=== PATIENT | male | born 2000 | race Asian ===

== ENCOUNTER 2021-01-30 09:24 | Inpatient (IN) | payer OTHER ==
[~2021-01-30] VITALS: Ht 177.8 cm; Wt 74.3 kg
[2021-01-30 10:44] LABS: HEMATOCRIT 46.2 % (42.0-52.0); HEMOGLOBIN 15.8 g/dl (13.5-17.5); MEAN CORPUSCULAR HEMOGLOBIN 28.5 pg (27.0-33.0); MEAN CORPUSCULAR HGB CONC 34.2 g/dl (32.0-36.5); MEAN CORPUSCULAR VOLUME 83.4 fl (80.0-96.0); PLATELET COUNT, AUTOMATED 323 10^3/uL (150-450); RED BLOOD COUNT 5.54 10^6/uL (4.30-6.10); WHITE BLOOD COUNT 7.9 10^3/uL (4.0-10.0)
[2021-01-30 11:25] LABS: ACETAMINOPHEN LEVEL < 2.0 UG/ML (10.0-30.0); ALBUMIN 4.4 GM/DL (3.2-5.2); ALT/SGPT 49 U/L (12-78); BILIRUBIN,DIRECT 0.2 MG/DL (0.0-0.2); BILIRUBIN,TOTAL 0.9 MG/DL (0.2-1.0); BLOOD UREA NITROGEN 10 MG/DL (7-18); CALCIUM LEVEL 9.3 MG/DL (8.5-10.1); CARBON DIOXIDE LEVEL 30 MEQ/L (21-32); CHLORIDE LEVEL 104 MEQ/L (98-107); CREATININE FOR GFR 0.68 MG/DL (0.70-1.30); ETHYL ALCOHOL (ETHANOL) < 0.003 % (0.000-0.010); GLOMERULAR FILTRATION RATE > 60.0 (>60); GLUCOSE, FASTING 100 MG/DL (70-100); POTASSIUM SERUM 4.5 MEQ/L (3.5-5.1); SALICYLATE LEVEL < 1.7 MG/DL (5.0-30.0); SODIUM LEVEL 138 MEQ/L (136-145); THYROID STIMULATING HORMONE 0.819 uIU/ML (0.358-3.740); TOTAL PROTEIN 8.2 GM/DL (6.4-8.2)
[2021-01-30 13:41] LABS: AMPHETAMINES LEVEL URINE NEGATIVE (NEGATIVE); BARBITURATES URINE NEGATIVE (NEGATIVE); BENZODIAZEPINES URINE NEGATIVE (NEGATIVE); CANNABINOIDS URINE NEGATIVE (NEGATIVE); COCAINE METABOLITE URINE NEGATIVE (NEGATIVE); METHADONE URINE NEGATIVE (NEGATIVE); OPIATES URINE NEGATIVE (NEGATIVE); PHENCYCLIDINE URINE NEGATIVE (NEGATIVE)
[2021-01-30] MEDS ORDERED: ACETAMINOPHEN TAB 650MG DOSE (2X325MG) PO PRN (17:25)
[2021-01-30] MEDS ORDERED: MAALOX 30 ML SUSP *UDC PO PRN (17:25)
[2021-01-30] MEDS ORDERED: traZODone 50 MG TAB PO PRN (17:25)
[2021-01-30] MEDS ORDERED: MOM 30ML SUSPENSION UDC PO PRN (17:25)
[2021-01-30] MEDS ORDERED: hydrOXYzine 10 MG TAB PO PRN (17:25)
[2021-01-30 18:22] LABS: RSV AMPLIFICATION NEGATIVE (NEGATIVE)
[2021-01-30 22:10] VITALS: BP 116/66
[2021-01-31 06:59] VITALS: BP 119/59
[2021-01-31] MEDS: SERTRALINE HCL 50 MG TAB PO SCH (09:41)
--- NOTE | 2021-01-31 10:37 | MHHPE ---
FORMERLY [facility], [facility] HISTORY AND PHYSICAL DATE OF ADMISSION: 01/30/2021 IDENTIFYING DATA: He is a 20-year-old male of Pashto descent who is an active duty soldier from [place], who was admitted because of depression and suicidal thoughts. CHIEF COMPLAINT: "I was depressed and I had suicidal thoughts." HISTORY OF PRESENT ILLNESS: Patient reports he has been depressed for a while, but the depression increased after he joined the and it became worse. He had frequent suicidal thoughts, but two days ago, his suicidal thoughts increased. He informed the sergeant and the sergeant brought him to the hospital. Patient, during the evaluation, said he had suicidal thoughts, but he does not have any plans to hurt himself. The patient was in therapy at [facility], but it did not help him much. Denies any history of manic episodes. Denies any psychotic symptoms in the past. Patient has a history of anxiety, which is nonspecific. His stressors are being in the [employer]. He reports he does not like the environment. ALLERGIES: No known allergies. PAST PSYCHIATRIC HISTORY: Has never been hospitalized for psychiatric problems. Has been in therapy twice at [facility]. SUICIDAL HISTORY: Denies suicidal attempts. DRUG/ALCOHOL HISTIRY: Patient denies. MEDICAL HISTORY: Patient has some pain in both knee joints, but has not seen any doctors. FAMILY HISTORY: His sister has history of depression. PERSONAL HISTORY: He was born in [place], raised there and he graduated from High School. 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 No history of any physical or sexual abuse. MENTAL STATUS EXAMINATION: Casually dressed in hospital dress with clean clothes. Makes good eye contact. Psychomotor activity is mildly retarded. Cooperative. Mood is depressed. Affect is somewhat blunted. Speech: Rate, rhythm and volume is good. Thought process: Linear and goal-directed. Thought content: Complains of some vague suicidal thoughts. Denies any auditory or visual hallucinations. Denies any homicidal ideas. His insight and judgment is fair. Memory: Immediate, remote and recent is good. VITAL SIGNS: Temperature 97.4, respiratory rate 20, pulse 63, blood pressure 119/59, pulse oximetry 96. REVIEW OF SYSTEMS: CONSTITUTIONAL: Negative for night sweats or weight loss. HEENT: Negative for epistaxis or headache. RESPIRATORY: No cough or shortness of breath. CARDIOVASCULAR: Negative for chest pain or palpitations. GASTROINTESTINAL: No abdominal pain or change in bowel habits. GENITOURINARY: No trouble voiding. MUSCULOSKELETAL: Negative for gait disturbances. NEUROLOGICAL: Negative for dizziness, numbness or tingling. DIAGNOSES: 1. Major depressive disorder, first episode. 2. Anxiety disorder, unspecified. ASSESSMENT AND PLAN: 1. Admit to inpatient mental health unit (IMHU). 2. He will be seen by process developer for medical needs. 3. He will be seen by mental health social worker and case management. 4. Patient will be placed on appropriate precautions such as suicide precautions, 15 minute checks. 5. He will participate in individual, group and milieu therapy. MEDICATIONS: I will start with Lexapro 5 mg once daily, titrate the dose. The side effects and the benefits of the medication was explained to the patient. ESTIMATED LENGTH OF STAY: 5-6 days. TIME SPENT: 45 minutes.
--- NOTE | 2021-01-31 16:32 | HPEPDOC ---
General Date of Admission Jan 30, 2021 at 17:22 Date of Service: Jan 31, 2021 Chief Complaint The patient is a 20-year-old male admitted with a reason for visit of Unspecified Depressive Disorder. Source: Patient Exam Limitations: No limitations History of Present Illness Patient is 20 years old male without significant past medical history presented to hospital with suicidal ideation. Patient stated that He had frequent suicidal thoughts, but two days ago, his suicidal thoughts increased. He informed the sergeant and the sergeant brought him to the hospital. During my interview patient denies fever, chills, nausea, dysuria, diarrhea. Patient reported chronic knee pain bilaterally intermittent, during walking Home Medications No Active Prescriptions or Reported Meds Allergies Coded Allergies: No Known Drug Allergies (Verified Allergy, Unknown, 01/30/21) Past Medical History Medical History No significant past medical history Family History Both parents have diabetes Social History * Smoker: Denies Alcohol: Denies Drugs: denies A-FIB/CHADSVASC A-FIB History Current/History of A-Fib/PAF?: No Current PO Anticoag Therapy: No Review of Systems Constitutional: Denies: Chills Eyes: Denies: Vision change ENT: Denies: Head Aches Skin: Denies: Rash, Lesions Pulmonary: Denies: Dyspnea Cardiovascular: Denies: Chest Pain Gastrointestinal: Denies: Nausea Genitourinary: Denies: Dysuria Hematologic: Denies: Bruising Endocrine: Denies: Polydipsia Musculoskeletal: Reports: Joint Pain Neurological: Denies: Weakness Psych: Reports: Depression Physical Examination General Exam: Positive: Alert, Cooperative Eye Exam: Positive: PERRLA ENT Exam: Positive: Atraumatic Neck Exam: Positive: Supple; Negative: JVD Chest Exam: Positive: Clear to auscultation Heart Exam: Positive: Rate Normal Telemetry: Positive: No significant arrhythmia Abdomen Exam: Positive: Normal bowel sounds Extremity Exam: Negative: Clubbing, Cyanosis Skin Exam: Positive: Nl turgor and temperature Neuro Exam: Positive: Normal Gait Psych Exam: Positive: Oriented x 3 Vital Signs Vital Signs Date Time Temp Pulse Resp B/P (MAP) Pulse Ox O2 Delivery O2 Flow Rate FiO2 01/31/21 06:59 97.4 6 20 119/59 (79) 96 Room Air Laboratory Data Labs 24H Laboratory Tests 2 01/30/21 17:27: Coronavirus (COVID-19)(PCR) NEGATIVE, Influenza Type A (RT-PCR) NEGATIVE, Influenza Type B (RT-PCR) NEGATIVE, Respiratory Syncytial Virus (PCR) NEGATIVE Assessment/Plan Patient is 20 years old male without significant past medical history presented to hospital with suicidal ideation. Patient stated that He had frequent suicidal thoughts, but two days ago, his suicidal thoughts increased. He informed the sergeant and the sergeant brought him to the hospital. During my interview patient denies fever, chills, nausea, dysuria, diarrhea. Patient reported chronic knee pain bilaterally intermittent, during walking Problems (1) Depressive disorder, not elsewhere classified Status: Acute Problem Text: Defer treatment to psych team (2) Knee pain, bilateral Status: Chronic Problem Text: Follow-up with PCP in the outpatient settings Plan / VTE VTE Prophylaxis Ordered?: No VTE Exclusion Mechanical Proph: Low Risk for VTE BABS RAMIREZ DO Jan 31, 2021 16:32
[2021-01-31 18:00] VITALS: BP 140/67
[2021-02-01 06:23] VITALS: BP 155/79
[2021-02-01] MEDS: SERTRALINE HCL 50 MG TAB PO SCH (10:01)
--- NOTE | 2021-02-01 11:17 | MHIPNPDOC ---
[facility] Progress Note Progress Note DATE OF SERVICE: 02/01/21 SUBJECTIVE I am still depressed and I do not like . 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 Patient reports he has been depressed for a while, but the depression increased after he joined the and it became worse. He had frequent suicidal thoughts, but two days ago, his suicidal thoughts increased. He informed the sergeant and the sergeant brought him to the hospital. Patient, during the evaluation, said he had suicidal thoughts, but he does not have any plans to hurt himself. The patient was in therapy at [facility], but it did not help him much. Denies any history of manic episodes. Denies any psychotic symptoms in the past. Patient has a history of anxiety, which is nonspecific. His stressors are being in the [employer]. He reports he does not like the environment. Patient still depressed and isolative, Does not attend groups, reports does not like to attend them. MENTAL STATUS EXAMINATION: Casually dressed in hospital dress with clean clothes. Makes good eye contact. Psychomotor activity is mildly retarded. Cooperative. Mood is depressed. Affect is somewhat blunted. Speech: Rate, rhythm and volume is good. Thought process: Linear and goal-directed. Thought content: Complains of some vague suicidal thoughts. Denies any auditory or visual hallucinations. Denies any homicidal ideas. His insight and judgment is fair. Memory: Immediate, remote and recent is good. Review of systems: Denies chest pain palpitation, denies cough shortness of breath, denies abdominal pain dysuria Denies dizziness tingling numbness. Diagnosis: major depressive disorder recurrent Panic disorder Plan is continue current medications, titrate the dose encourage him to go to the groups and activities Estimated length of stay: 3 to 4 days Time spent: 25 minutes Vital Signs Vital Signs Date Time Temp Pulse Resp B/P (MAP) Pulse Ox O2 Delivery O2 Flow Rate FiO2 02/01/21 06:23 99.0 64 14 155/79 (104) 99 Room Air Current Medications Current Medications Medications (Trade) Dose Ordered Sig/Araceli Route PRN Reason Start Time Stop Time Status Last Admin Dose Admin Acetaminophen (Tylenol Tab) 650 mg Q6HP PRN PO HEADACHE or MILD DISCOMFORT 01/30/21 17:25 Al Hydrox/Mg Hydrox/Simethicone (Mylanta) 30 ml Q4HP PRN PO HEARTBURN/INDIGESTION 01/30/21 17:25 Home Med (Med Rec Complete!) ASDIRECTED XX 01/30/21 17:10 01/30/21 17:08 DC Hydroxyzine HCl (Atarax) 10 mg Q6HP PRN PO ANXIETY 01/30/21 17:25 Magnesium Hydroxide (Milk Of Magnesia) 30 ml DAILYPRN PRN PO CONSTIPATION 01/30/21 17:25 Sertraline HCl (Zoloft) 50 mg DAILY PO 01/31/21 09:00 02/01/21 10:01 Trazodone HCl (Desyrel) 50 mg QHSP PRN PO INSOMNIA 01/30/21 17:25 Allergies Coded Allergies: No Known Drug Allergies (Verified Allergy, Unknown, 01/30/21) ELDA SPARKS MD Feb 01, 2021 11:17
[2021-02-01 18:00] VITALS: BP 130/82
[2021-02-02 05:34] VITALS: BP 136/63
[2021-02-02] MEDS: SERTRALINE HCL 50 MG TAB PO SCH (08:20)
--- NOTE | 2021-02-02 14:56 | MHIPN ---
[facility] PROGRESS NOTE DATE: 02/02/2021 VITAL SIGNS: Blood pressure 136/63, pulse 54, temperature 96.9. This is a video assessment. Patient is aware of it as well as its limitations. He is at the inpatient [facility]. I am at home. He is seen in the presence of staff. CHIEF COMPLAINT: Says feels okay. SUBJECTIVE: Seen for followup. Indicates feels okay, though vague on this. Later indicates has been feeling depressed. Had trouble with sleep. It was bit erratic. Appetite okay. Has suicidal thoughts. No firm plans. MENTAL STATUS EXAMINATION: Neat, guarded, coherent. No agitation. No psychomotor retardation. Mostly gives one-word answers, briefly, coherently. Affect restricted in range. Denies active suicidal thoughts or intents. No homicidal ideas or intents. No evidence of any psychosis. Cognition grossly intact. Judgment and insight compromised. ASSESSMENT: 1. Major depressive disorder, recurrent. 2. Panic disorder. Appears depressed. Is guarded. Somewhat vague on thoughts of harming himself. PLAN: Continue current care, including sertraline. This has just been started a couple days ago. May need to consider increasing it. Currently on 50 mg daily. He is to be observed. We will maintain current precautions. He is also to be encouraged to participate in activities in the unit. Further recommendations will be made depending on the clinical picture.
[2021-02-02 16:31] VITALS: BP 114/64
[2021-02-03 06:23] VITALS: BP 118/58
[2021-02-03] MEDS: SERTRALINE HCL 50 MG TAB PO SCH (09:15)
[2021-02-03 15:39] VITALS: BP 138/64
[2021-02-04 06:32] VITALS: BP 116/68
--- NOTE | 2021-02-04 08:28 | MHIPN ---
FORMERLY [facility] PROGRESS NOTE DATE: 02/03/2021 VITAL SIGNS: Blood pressure 118/58, pulse 62, temperature 98.4. This is a video assessment, he is seen in the presence of staff, he is at the hospital at the inpatient unit, I am at home. CHIEF COMPLAINT: Says feels okay. SUBJECTIVE: He is seen for followup, indicates has been feeling okay, but does not expand much, says has not had much to do, and that he has been thinking of things, moods are depressed mostly. He does not think he has thoughts of harming himself at present. MENTAL STATUS EXAMINATION: Neat, cooperative, less guarded than yesterday, somewhat. No agitation, no psychomotor retardation, affect is restricted in range. Denies any active suicidal thoughts or intents, no homicidal ideas or intents, no evidence of any psychosis, cognition grossly intact, judgment and insight remain compromised, though possibly somewhat improved. ASSESSMENT: Major depressive disorder, recurrent. Panic disorder. PLAN: Continue current care, observations, will look at increasing the sertraline from the current dose of 50 mg daily. He is to be encouraged to participate in activities in the unit. Present precautions are maintained. He will be seeing the assigned clinician tomorrow, when further recommendations will be made.
[2021-02-04] MEDS: SERTRALINE HCL 50 MG TAB PO SCH (09:23)
--- NOTE | 2021-02-04 14:24 | MHIPNPDOC ---
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 He states, "I was depressed and I had suicidal thoughts." Patient reports he has been depressed for a while, but the depression increased after he joined the and it became worse. He had frequent suicidal thoughts, but two days ago, his suicidal thoughts increased. He informed the sergeant and the sergeant brought him to the hospital. Patient, during the evaluation, said he had suicidal thoughts, but he does not have any plans to hurt himself. The patient was in therapy at [facility], but it did not help him much. Denies any history of manic episodes. Denies any psychotic symptoms in the past. Patient has a history of anxiety, which is nonspecific. His stressors are being in the [employer]. He reports he does not like the environment. PER ED REPORT: PT is +SI with plan to shoot himself. Pt. is Active Duty [place] beginning 07/2020. 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 His brother is also AD. 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 Pt. states that he only talks to his sister about his depression as she has gone thru similar experience with depression and SI. He has been seen at the [facility] 2x and next appointment 02/19/21. Today Pt. was talking with his [facility] Charles [phone] and he stated that he would not be able to go to the field training next week as he did not want to hold a weapon "I may kill myself". PT states he had thought about overdosing and that he had asked his sister if she thought that his medications were lethal for an overdose and he acted as if it was a hypothetical question. PT has been waking at 3am consistently for one week. He continues to be suicidal and states he has occasional HI towards an NCO but that he would never do anything because he has respect and truly has no desire to harm someone. Admission process explained. VITAL SIGNS: See below. CURRENT MEDICATIONS: See below. 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 Denies suicidal/homicidal ideation, planning or intent. Abstract reasoning, and computation: fair Description of associations: denies, none observed Description of abnormal or psychotic thoughts: denies, none observed. Judgment: fair Insight: fair Orientation: alert and oriented to person, place, time and situation Recent and remote memory: intact Attention span and concentration: good Language: expansive Fund of knowledge: average Mood: Depressed Mood Affect: Constricted DIAGNOSES: Major depressive disorder, recurrent. Panic disorder ASSESSMENT: Patient states that he has less depression and anxiety, although his affect is very flat. He denies suicidal ideations. He states that he would not self harm because his reasons for living is his family. He states in the interview that he does not plan on telling his parents that he is admitted to the hospital, he plans on terminating his contract with the [employer] but wants to be in the [employer]. 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 He was somewhat disengaged in the interview, but culturally seemed to be normal. MANAGEMENT PLAN: Continue all medications, probable discharge tomorrow. TIME SPENT: 25 minutes. Vital Signs Vital Signs Date Time Temp Pulse Resp B/P (MAP) Pulse Ox O2 Delivery O2 Flow Rate FiO2 02/04/21 06:32 97.6 65 16 116/68 (84) 98 Room Air Current Medications Current Medications Medications (Trade) Dose Ordered Sig/Araceli Route PRN Reason Start Time Stop Time Status Last Admin Dose Admin Acetaminophen (Tylenol Tab) 650 mg Q6HP PRN PO HEADACHE or MILD DISCOMFORT 01/30/21 17:25 Al Hydrox/Mg Hydrox/Simethicone (Mylanta) 30 ml Q4HP PRN PO HEARTBURN/INDIGESTION 01/30/21 17:25 Home Med (Med Rec Complete!) ASDIRECTED XX 01/30/21 17:10 01/30/21 17:08 DC Hydroxyzine HCl (Atarax) 10 mg Q6HP PRN PO ANXIETY 01/30/21 17:25 Magnesium Hydroxide (Milk Of Magnesia) 30 ml DAILYPRN PRN PO CONSTIPATION 01/30/21 17:25 Sertraline HCl (Zoloft) 50 mg DAILY PO 01/31/21 09:00 02/04/21 09:23 Trazodone HCl (Desyrel) 50 mg QHSP PRN PO INSOMNIA 01/30/21 17:25 Allergies Coded Allergies: No Known Drug Allergies (Verified Allergy, Unknown, 01/30/21) JERRI BHARDWAJ NP Feb 04, 2021 14:24
[2021-02-04] MEDS ORDERED: SERT50TA29 PO (16:30)
[2021-02-04] MEDS ORDERED: HYDR-643 PO (16:30)
[2021-02-04 19:04] VITALS: BP 154/94
[2021-02-05 07:20] VITALS: BP 123/73
[2021-02-05] MEDS: SERTRALINE HCL 50 MG TAB PO SCH (08:56)
--- NOTE | 2021-02-05 11:56 | MHDSPDOC ---
[facility] Discharge Summary Discharge Summary DATE OF ADMISSION: Jan 30, 2021 at 17:22 DATE OF DISCHARGE: Feb 05, 2021 at 10:50 DISCHARGE DIAGNOSES: Major depressive disorder, recurrent. Panic disorder REASON FOR ADMISSION: He is a 20-year-old Single. 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 He states, "I was depressed and I had suicidal thoughts." Patient reports he has been depressed for a while, but the depression increased after he joined the and it became worse. He had frequent suicidal thoughts, but two days ago, his suicidal thoughts increased. He informed the sergeant and the sergeant brought him to the hospital. Patient, during the evaluation, said he had suicidal thoughts, but he does not have any plans to hurt himself. The patient was in therapy at [facility], but it did not help him much. Denies any history of manic episodes. Denies any psychotic symptoms in the past. Patient has a history of anxiety, which is nonspecific. His stressors are being in the [employer]. He reports he does not like the environment. PER ED REPORT: PT is +SI with plan to shoot himself. Pt. 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 His brother is also AD. 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 Pt. states that he only talks to his sister about his depression as she has gone thru similar experience with depression and SI. He has been seen at the [facility] 2x and next appointment 02/19/21. Today Pt. was talking with his [employer] Charles [phone] and he stated that he would not be able to go to the field training next week as he did not want to hold a weapon "I may kill myself". PT states he had thought about overdosing and that he had asked his sister if she thought that his medications were lethal for an overdose and he acted as if it was a hypothetical question. PT has been waking at 3am consistently for one week. He continues to be suicidal and states he has occasional HI towards an NCO but that he would never do anything because he has respect and truly has no desire to harm someone. Admission process explained. VITAL SIGNS: See below. CONSULTANTS INVOLVED: See Medical H + P by Hospitalist TREATMENT AND PROGRESS ON THE UNIT: Patient was admitted to the [facility] on a legal status he was afforded the following treatment modalities: 1) Individual Therapy 2) Group Therapy 3) Medication Management 4) Milieu Therapy 5) Safe Environment HOSPITAL COURSE: Patient was admitted to [facility] on a legal status. He was started on Zoloft 50 mg daily and Hydroxyzine 10 mg every 6 hours PRN for anxiety. He reported that he was having difficulty in the [employer] and felt that discharging from the [facility] and joining the [employer] would be a better fit for him. Patient was isolative to his room and withdrawn but states that this is his normal behaviors. 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 In today's meeting patient denies abnormal psychiatric sympt oms and requesting to be discharged today. Patient voices that he is stable and denies any suicidal ideations. DISCHARGE ASSESSMENT: In today's interview, patient is alert and oriented, pt's dress is appropriate. Hygiene and grooming is well-kempt. Smiles on approach and is pleasant and engaged in the interview. Denies depression and anxiety. Denies suicidal and homicidal ideation, planning or intent. Denies and is not observed with radhames, psychotic symptoms of delusions, bizarre thinking, obsessions, paranoia, ruminations illogical thoughts, flight of ideas or having poor insight and judgement. Patient has normal mentation, declines further hospitalization on a voluntary status and meets criteria for discharge today. MENTAL STATUS EXAMINATION ON DISCHARGE: Patient is a 20-year-old Single. Active Duty, [place] Male who was admitted because of depression and suicidal thoughts Appearance: Fair hygiene and grooming Behavior: Cooperative Eye Contact: Fair Speech: Is fluid, slow rate, low tone and volume Language skills are intact Thought processes including: linear and goal oriented Thought content: reports decreased depression and anxiety. Denies suicidal/homicidal ideation, planning or intent. Abstract reasoning, and computation: fair Description of associations: denies, none observed Description of abnormal or psychotic thoughts: denies, none observed. Judgment: fair Insight: fair Orientation: alert and oriented to person, place, time and situation Recent and remote memory: intact Attention span and concentration: good Language: expansive Fund of knowledge: average Mood: Euthymic mood Affect: Constricted MEDICATIONS ON DISCHARGE: -See medication reconciliation [facility] The amount of time spent in the coordination of care for this patient was approximately 25 minutes. ETOH/Disorder Med Rx ETOH/DRUG DISORDER RX: N/A Vital Signs/I&Os Vital Signs Date Time Temp Pulse Resp B/P (MAP) Pulse Ox O2 Delivery O2 Flow Rate FiO2 02/05/21 07:20 97.9 62 20 123/73 (90) 97 Room Air Medications Scheduled Sertraline HCl (Sertraline HCl) 50 Mg Tablet, 50 MG PO DAILY for Depression, #7 Scheduled PRN Hydroxyzine HCl (Hydroxyzine HCl) 10 Mg Tablet, 10 MG PO BIDP PRN for ANXIETY, #14 Allergies Coded Allergies: No Known Drug Allergies (Verified Allergy, Unknown, 01/30/21) JERRI BHARDWAJ NP Feb 05, 2021 11:47
== END 2021-02-05 10:50 | disposition home or self-care (01) | DRG 885 ==
LOC: M ED 09:24 → M ED INP 17:22 → M PSY 21:09
PROVIDERS: ADMIT Psychiatry & Neurology Psychiatry; ATTEND Psychiatry & Neurology Psychiatry
DX: F33.9 Major depressive disorder, recurrent, unspecified (principal); R45.851 Suicidal ideations; F41.0 Panic disorder [episodic paroxysmal anxiety]